=== PATIENT | male | born 1955 | race Caucasian/White ===

== ENCOUNTER → 2021-09-22 10:54 | Outpatient (BNVA) | payer MEDICARE, OTHER, SELFPAY | PROVIDERS: Visit Provider Internal Medicine Rheumatology | DX: R20.0 Anesthesia of skin (principal); M35.3 Polymyalgia rheumatica; M19.049 Primary osteoarthritis, unspecified hand | CPT/HCPCS: 99212 ==

== ENCOUNTER 2021-09-29 08:06 | Outpatient (REF) | payer MEDICARE, OTHER, SELFPAY ==
--- NOTE | 2021-09-29 08:12 | EMG_ITS ---
Bilateral median and ulnar motor and sensory studies were performed, bilateral radial sensory studies were performed, bilateral median and lateral antecubital sensory studies were performed. Paraspinal muscles were tested with a needle. IMPRESSION: 1. 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 2. 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 3. Bilateral medial plexus injury, which might be due to his history of shoulder surgeries. Clinical correlation is recommended. 4. Because of the extent and the type of median and ulnar neuropathies and to differentiate it from non entrapment type of neuropathy, testing on legs is recommended. If similar signs of neuropathy are found in the lower extremities, non entrapment etiologies should be looked at too. MD LARA Tavarez/MAMADOU / [phone]
== END 2021-09-29 08:07 | disposition home or self-care (01) ==
LOC: HO.NEURO 08:06
PROVIDERS: PCP Internal Medicine; Visit Provider Internal Medicine Rheumatology
DX: R20.0 Anesthesia of skin (principal)
CPT/HCPCS: 95886; 95913

== ENCOUNTER 2021-12-01 09:42 | Outpatient (REF) | payer MEDICARE, OTHER, SELFPAY ==
[2021-12-01 11:25] LABS: C Reactive Protein 0.06 mg/dL (< or = 0.50)
[2021-12-01 16:01] LABS: Erythrocyte Sedimentation Rate 13 MM/HR (0-15)
[2021-12-06 12:32] LABS: Anti DNA DS Antibody 1 IU/mL; SM/Ribonucleoprotein Ab <1.0 NEG AI (<1.0 NEG); Smith Protein <1.0 NEG AI (<1.0 NEG)
== END 2021-12-01 09:43 | disposition home or self-care (01) ==
LOC: HO.10HDL 09:42
PROVIDERS: Visit Provider Internal Medicine Rheumatology
DX: M19.049 Primary osteoarthritis, unspecified hand (principal); R20.0 Anesthesia of skin; M65.9 Synovitis and tenosynovitis, unspecified; R76.8 Other specified abnormal immunological findings in serum; M35.3 Polymyalgia rheumatica
CPT/HCPCS: 36415; 85652; 86140; 86225; 86235; 99212

== ENCOUNTER → 2022-03-02 08:28 | Outpatient (BNVA) | payer OTHER, MEDICARE, SELFPAY | PROVIDERS: PCP Internal Medicine; Visit Provider Internal Medicine Rheumatology | DX: M35.3 Polymyalgia rheumatica (principal); M19.049 Primary osteoarthritis, unspecified hand; M47.816 Spondylosis without myelopathy or radiculopathy, lumbar region; R35.0 Frequency of micturition; R20.0 Anesthesia of skin | CPT/HCPCS: 81001; 87086; 99212 ==

== ENCOUNTER 2022-03-02 09:27 | Outpatient (REF) | payer MEDICARE, OTHER, SELFPAY ==
[2022-03-02 10:53] LABS: Appearance Urine Clear; Color Urine Yellow; Glucose Urine UA Negative (Negative); Leukocyte Esterase Urine Negative (Negative); Nitrite Urine Negative (Negative); PH 5.5 (5.0-9.0); Specific Gravity - Urine 1.015 (1.005-1.025); Urine Blood Negative (Negative); Urine Ketones Negative (Negative); Urine Protein Negative (Neg-Trace)
[2022-03-02 10:55] LABS: Bacteria Urine None Seen (None Seen); Hyaline Casts Urine 0-2 /LPF (0-2); Squamous Epithelial Cell Urine 0-2 /HPF (0-2); WBC Urine 0-5 /HPF (0-5)
== END 2022-03-02 09:28 | disposition home or self-care (01) ==
LOC: HO.10HDL 09:27
PROVIDERS: Visit Provider Internal Medicine Rheumatology
DX: Z13.89 Encounter for screening for other disorder (principal)
CPT/HCPCS: 81001; 87086

== ENCOUNTER → 2022-06-12 07:54 | Outpatient (BNVA) | payer MEDICARE, OTHER, SELFPAY | PROVIDERS: PCP Internal Medicine; Visit Provider Internal Medicine Rheumatology | DX: M35.3 Polymyalgia rheumatica (principal); M19.049 Primary osteoarthritis, unspecified hand; M47.816 Spondylosis without myelopathy or radiculopathy, lumbar region; R97.20 Elevated prostate specific antigen [PSA] | CPT/HCPCS: 36415; 85652; 86140; 99212 ==

== ENCOUNTER 2022-06-12 08:42 | Outpatient (REF) | payer MEDICARE, OTHER, SELFPAY ==
[2022-06-12 11:02] LABS: C Reactive Protein 0.11 mg/dL (< or = 0.50)
[2022-06-12 11:14] LABS: Erythrocyte Sedimentation Rate 13 MM/HR (0-15)
== END 2022-06-12 08:43 | disposition home or self-care (01) ==
LOC: HO.10HDL 08:42
PROVIDERS: Visit Provider Internal Medicine Rheumatology
DX: M35.3 Polymyalgia rheumatica (principal); M47.816 Spondylosis without myelopathy or radiculopathy, lumbar region; R97.20 Elevated prostate specific antigen [PSA]
CPT/HCPCS: 36415; 85652; 86140

== ENCOUNTER 2023-08-24 09:34 | Outpatient (AMB) | payer MEDICARE, OTHER, SELFPAY ==
--- NOTE | 2023-08-24 09:38 | A.OFFVIS_ITS ---
Vital Signs 08/24/23 09:39 Height 5 ft 11 in Weight 247 lb 12.793 oz BMI 34.6 BP 98/78 Blood Pressure Location Rt brachial Position Sitting Pulse 86 Pulse Source Pulse Oximeter Pulse Oximetry (%) 95 Oxygen Delivery Method Room Air Intake Visit Reasons: PMR/CM Intake Note: Patient last seen on 06/12/[address] 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 Accompanied by: Self / Same As Patient Allergies Penicillins Adverse Reaction (Intermediate, Verified 08/24/23 09:44) Rash Medication List - Last Reconciled 08/24/23 by Douglas Mock MD amlodipine 2.5 mg PO DAILY ascorbic acid (vitamin C) 1 g PO DAILY aspirin (Adult Low Dose Aspirin) 81 mg PO DAILY atorvastatin 80 mg PO DAILY furosemide (Lasix) 20 mg PO DAILY lisinopril 20 mg PO DAILY metoprolol tartrate 25 mg PO BID prednisone 2.5 mg PO BID tamsulosin 0.4 mg PO BEDTIME tramadol 100 mg PO BID HPI Comments Details: This is a 68-year-old male with PMR and osteoarthritis who presents for follow- up. And states that he was tapered off the prednisone sometime in the last year however he restarted it about 4 months ago at 2.5 mg daily. Started it due to neck stiffness and cracking, left knee stiffness cracking and swelling as well as just generalized achiness, states that prednisone does provide some relief. Denies any headaches or blurred vision Most recent history by Dr. Faust 06/2022: The patient returns for evaluation of his PMR and osteoarthritis. He reports some lower back pain and wrist pain when he is more active. He is walking a couple miles a day as well as occasional mountain biking and does a lot a yard work. With the yard work he does get some wrist pain. This seems to be mostly at the base of the thumbs. He has some lower back, and that pain radiates to the buttocks and the groin region with prolonged walking. He does not have any headache, jaw claudication or visual disturbances. The shoulders have limited motion but are not painful. He remains on prednisone at 2.5 mg in the morning and 1.25 mg in the evening. His hand paresthesias continue although they are seemingly less bothersome to him. He had nerve conduction studies in the past showing evidence for carpal tunnel syndrome, ulnar neuropathy, and perhaps even brachial plexus injury from previous shoulder surgeries. He had a CT scan of the abdomen that showed a nonobstructive stone. Apparently he has somewhat elevated PSA and MRI of the pelvis has been ordered by his urologist. [facility], [facility] Surgical History History of EMG H/O shoulder replacement Family History Family/Other Autoimmune disease Father Heart disease Pancreatic cancer Mother No problems noted. 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[employer] Review of Systems ENT Reports neck pain Musc Reports back pain, Reports arthralgias, Reports joint swelling, Reports neck pain and Reports stiffness Physical Exam Vital Signs: Last Vital Signs Pulse 86 08/24/23 09:39 BP 98/78 08/24/23 09:39 Pulse Ox 95 08/24/23 09:39 Oxygen Delivery Method Room Air 08/24/23 09:39 BMI result Body Mass Index 34.6 Const General: cooperative, healthy appearing and comfortable Nutritional Appearance: obese morbidly obese Orientation/consciousness: patient oriented x3 Limitations: no limitations HEENT Head: Yes normocephalic and Yes atraumatic Mouth: oropharynx normal Resp Effort & Inspection: normal respiratory effort and able to speak in complete sentences Auscultation: clear to auscultation bilaterally Cardio Rate: regular rate Skin General skin exam: no rashes or lesions noted Neuro General: patient oriented x3 Extrem Other: Limited range of motion of neck but no acute pain No radiculopathy symptoms Significant osteoarthritic changes of both hands with no active synovitis . 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 Restarted 2019, tapered off around 06/2022 -ve -ve CCP +DELMIS 1:80 self restarted 04/2023 Code(s): M35.3 - Polymyalgia rheumatica Category: Medical Plan: This is a 68-year-old male with history of polymyalgia rheumatica who presents for follow-up this is his 1st visit with me. He used to follow-up with Dr. Faust. Last year prednisone was tapered off by Dr. Faust. Over the last 4-5 months patient started having symptoms of stiffness of his neck, shoulders, knees, intermittent swelling of his left knee. He started taking prednisone 2.5 mg daily with some improvement. I think at this time patient's PMR is likely in remission and his main symptoms are related to degenerative arthritis affecting multiple joints including his neck, his knees, his back, prednisone can provide some relief for osteoarthritis as well. I will recheck his inflammatory markers. Continue with prednisone 2.5 mg daily for now, if inflammatory markers are normal, we will plan to slowly taper off prednisone I will order PT for his neck and knees Labs before next visit in 3 months (2) Osteoarthritis of lumbar spine: Code(s): M47.816 - Spondylosis without myelopathy or radiculopathy, lumbar region Category: Medical Qualifiers: Spinal osteoarthritis complication: without myelopathy or radiculopathy Qualified Code(s): M47.816 - Spondylosis without myelopathy or radiculopathy, lumbar region (3) Cervical disc disease: Code(s): M50.90 - Cervical disc disorder, unspecified, unspecified cervical region Category: Medical (4) Bilateral primary osteoarthritis of knee: Code(s): M17.0 - Bilateral primary osteoarthritis of knee Category: Medical Plan I spent 46 minutes reviewing patient's chart, reviewing chart from [place], evaluating patient, ordering diagnostic workup, counseling patient and documenting in the chart Orders: Orders Complete Blood Count Auto Diff Today M35.3 - Polymyalgia rheumatica Erythrocyte Sedimentation Rate Today M35.3 - Polymyalgia rheumatica XR knee LT 3V Today M15.9 - Polyosteoarthritis, unspecified XR knee RT 3V Today M15.9 - Polyosteoarthritis, unspecified XR cervical spine 4V Today M15.9 - Polyosteoarthritis, unspecified PT Evaluation and Treatment Today M17.0 - Bilateral primary osteoarthritis of knee, M50.30 - Other cervical disc degeneration, unspecified cervical region Erythrocyte Sedimentation Rate 3 Months M35.3 - Polymyalgia rheumatica Comprehensive Met. Panel Today M35.3 - Polymyalgia rheumatica C Reactive Protein Today M35.3 - Polymyalgia rheumatica Hepatitis A,B,C Profile Today Z11.59 - Encounter for screening for other viral diseases T Spot TB Today Z11.7 - Encounter for testing for latent tuberculosis infection XR knee standing BI Today M15.9 - Polyosteoarthritis, unspecified Complete Blood Count Auto Diff 3 Months M35.3 - Polymyalgia rheumatica Comprehensive Met. Panel 3 Months M35.3 - Polymyalgia rheumatica C Reactive Protein 3 Months M35.3 - Polymyalgia rheumatica Coding Level of Care Code Est Pt Level 5 (03662) Diagnoses Polymyalgia rheumatica M35.3 Spondylosis of lumbar region without myelopathy or radiculopathy M47.816 Spinal osteoarthritis complication: without myelopathy or radiculopathy Cervical disc disease M50.90 Bilateral primary osteoarthritis of knee M17.0
[2023-08-24 09:39] VITALS: BP 98/78; PULSE 86; O2SAT 95; BMI 34.6
== END 2023-08-24 10:20 | disposition home or self-care (01) ==
LOC: HO.RHE 09:34
PROVIDERS: PCP Internal Medicine; Visit Provider Student in an Organized Health Care Education/Training Program
DX: M35.3 Polymyalgia rheumatica (principal); M47.816 Spondylosis without myelopathy or radiculopathy, lumbar region; M50.90 Cervical disc disorder, unspecified, unspecified cervical region; M17.0 Bilateral primary osteoarthritis of knee
CPT/HCPCS: 99215

== ENCOUNTER → 2023-08-24 09:34 | Outpatient (BNVA) | payer MEDICARE, OTHER, SELFPAY | PROVIDERS: PCP Internal Medicine; Visit Provider Student in an Organized Health Care Education/Training Program | DX: M35.3 Polymyalgia rheumatica (principal); M47.816 Spondylosis without myelopathy or radiculopathy, lumbar region; M50.90 Cervical disc disorder, unspecified, unspecified cervical region; M17.0 Bilateral primary osteoarthritis of knee; M50.30 Other cervical disc degeneration, unspecified cervical region; Z79.52 Long term (current) use of systemic steroids | CPT/HCPCS: 99212 ==

== ENCOUNTER 2023-09-03 13:18 | Outpatient (REF) | payer MEDICARE, OTHER, SELFPAY ==
--- NOTE | ~2023-09-03 | XR_ITS ---
EXAMINATION: Bilateral knee series CLINICAL INFORMATION: Mild osteoarthritis COMPARISON: None. TECHNIQUE: 4 views of each knee including AP upright FINDINGS: Right knee: Tiny marginal osteophytes about the lateral compartment and patellofemoral compartment without joint space narrowing indicative of minimal osteoarthritis. Medial compartment normal. No effusion. Surrounding bone and soft tissues unremarkable. Left knee: Tiny marginal osteophytes but patellofemoral compartment and lateral compartment without joint space narrowing indicative of minimal arthrosis. Medial compartment normal. No effusion. Surrounding bone and soft tissues unremarkable. XR/XR knee standing BI IMPRESSION: RIGHT KNEE: Minimal osteoarthritis. LEFT KNEE: Minimal osteoarthritis.
--- NOTE | ~2023-09-03 | XR_ITS ---
EXAMINATION: XR CERVICAL SPINE CLINICAL INFORMATION: Polyarticular osteoarthritis. COMPARISON: None. TECHNIQUE: Frontal, odontoid, bilateral oblique and lateral views of the cervical spine were obtained. FINDINGS: There is bony demineralization. Vertebral body heights are normal. At C5-C6 and C6-C7, there is moderately severe disc space narrowing, with endplate arthropathy. At C7-T1, there is a 4 mm anterolisthesis. There is moderate disc space narrowing at C2-C3 and C3-C4. No acute fracture or spondylolisthesis is seen. The posterior elements are intact. There is multi-level cervical endplate and facet arthropathy. The dens is intact. No prevertebral soft tissue swelling is seen. XR/XR cervical spine 4V IMPRESSION: There is multi-level cervical degenerative disc disease and endplate and facet arthropathy. Degenerative disc disease is most pronounced at C5-C6 and C6-C7, where it is moderately severe.
--- NOTE | ~2023-09-03 | XR_ITS ---
EXAMINATION: Bilateral knee series CLINICAL INFORMATION: Mild osteoarthritis COMPARISON: None. TECHNIQUE: 4 views of each knee including AP upright FINDINGS: Right knee: Tiny marginal osteophytes about the lateral compartment and patellofemoral compartment without joint space narrowing indicative of minimal osteoarthritis. Medial compartment normal. No effusion. Surrounding bone and soft tissues unremarkable. Left knee: Tiny marginal osteophytes but patellofemoral compartment and lateral compartment without joint space narrowing indicative of minimal arthrosis. Medial compartment normal. No effusion. Surrounding bone and soft tissues unremarkable. XR/XR knee RT 3V IMPRESSION: RIGHT KNEE: Minimal osteoarthritis. LEFT KNEE: Minimal osteoarthritis.
--- NOTE | ~2023-09-03 | XR_ITS ---
EXAMINATION: Bilateral knee series CLINICAL INFORMATION: Mild osteoarthritis COMPARISON: None. TECHNIQUE: 4 views of each knee including AP upright FINDINGS: Right knee: Tiny marginal osteophytes about the lateral compartment and patellofemoral compartment without joint space narrowing indicative of minimal osteoarthritis. Medial compartment normal. No effusion. Surrounding bone and soft tissues unremarkable. Left knee: Tiny marginal osteophytes but patellofemoral compartment and lateral compartment without joint space narrowing indicative of minimal arthrosis. Medial compartment normal. No effusion. Surrounding bone and soft tissues unremarkable. XR/XR knee LT 3V IMPRESSION: RIGHT KNEE: Minimal osteoarthritis. LEFT KNEE: Minimal osteoarthritis.
== END 2023-09-03 13:19 | disposition home or self-care (01) ==
LOC: HO.HMGCX 13:18
PROVIDERS: PCP Internal Medicine; Visit Provider Student in an Organized Health Care Education/Training Program
DX: M15.9 Polyosteoarthritis, unspecified (principal)
CPT/HCPCS: 72050; 73562; 73565

== ENCOUNTER 2023-10-09 09:56 | Outpatient (REF) | payer MEDICARE, OTHER, SELFPAY ==
[2023-10-09 13:15] LABS: MANUAL DIFF FLAG NO
[2023-10-09 13:36] LABS: Basophils Absolute Auto 0.1 X10*3/uL (0.0-0.2); Basophils Percent Auto 1.1 % (0-2); Eosinophils Absolute Auto 0.1 X10*3/uL (0.0-0.4); Eosinophils Percent Auto 1.9 % (0-4); Hematocrit 41.5 % (42.0-52.0); Hemoglobin 13.5 g/dl (14.0-18.0); Imm Gran Abs Auto 0.03 X10*3/uL (0.00-0.03); Imm Gran Pct Auto 0.5 % (0.0-0.4); Lymphocytes Absolute Auto 1.5 X10*3/uL (1.2-4.9); Lymphocytes Percent Auto 23.7 % (20-40); Mean Corpuscular HGB Conc 32.5 g/dl (31.0-36.0); Mean Corpuscular Hemoglobin 30.4 pg (27.0-33.0); Mean Corpuscular Volume 93.5 fL (80.0-98.0); Mean Platelet Volume 10.2 fL (9.4-12.4); Monocytes Absolute Auto 0.8 X10*3/uL (0.1-1.2); Monocytes Percent Auto 12.9 % (2-11); Neutrophils Absolute Auto 3.8 x10*3/uL (2.0-8.3); Neutrophils Percent Auto 59.9 % (45-73); Platelet Count 288 X10*3/uL (160-400); Red Blood Count 4.44 X10*6/uL (4.60-5.80); Red Cell Distribution Width 12.9 % (11.0-16.0); White Blood Count 6.3 X10*3/uL (4.8-10.8)
[2023-10-09 13:47] LABS: Alanine Aminotransferase 135 U/L (0-40); Albumin Level 4.1 g/dL (3.5-5.0); Alkaline Phosphatase 89 U/L (39-117); Anion Gap 12 (12-20); Aspartate Amino Transferase 111 U/L (5-37); Bilirubin Total 0.7 mg/dL (0.0-1.0); Blood Urea Nitrogen 20 mg/dL (9-16); C Reactive Protein 0.16 mg/dL (< or = 0.50); Calcium 9.5 mg/dL (8.4-10.2); Carbon Dioxide 23 mmol/L (22-29); Chloride 106 mmol/L (96-108); Estimated Glomerular Filt Rate > 60; Glucose Random 97 mg/dL (60-115); Potassium 4.3 mmol/L (3.3-5.1); Sodium 137 mmol/L (135-145)
[2023-10-09 14:20] LABS: Erythrocyte Sedimentation Rate 20 MM/HR (0-15)
[2023-10-10 04:58] LABS: HBS Num1 > 1000.00 mIU/mL (0-7.99); HBc Num1 0.08 S/CO (0.00-0.79); HBsAGNum1 0.24 S/CO (0.00-0.99); Hepatitis A Antibody IgM 0.27 Index (0-0.79); Hepatitis B Core Antibody Nonreactive (Nonreactive); Hepatitis B Surface Antigen Negative (Negative); ~HepC Num1 0.19 S/CO (0.00-0.79); ~Hepatitis A Antibody IgM Nonreactive (Nonreactive); ~Hepatitis B Surface Antibody REACTIVE (Nonreactive); ~Hepatitis C Antibody Nonreactive (Nonreactive)
[2023-10-12 13:23] LABS: TS Negative Control Passed; TS Panel A 3; TS Panel B 0; TS Positive Control Passed; TSpotTB Negative (Negative)
== END 2023-10-09 09:57 | disposition home or self-care (01) ==
LOC: HO.HMGCLDS 09:56
PROVIDERS: PCP Internal Medicine; Visit Provider Student in an Organized Health Care Education/Training Program
DX: M35.3 Polymyalgia rheumatica (principal); Z11.59 Encounter for screening for other viral diseases; Z11.7 Encounter for testing for latent tuberculosis infection; Z72.89 Other problems related to lifestyle
CPT/HCPCS: 36415; 80053; 85025; 85652; 86140; 86481; 86704; 86706; 86709; 86803; 87340

== ENCOUNTER 2023-10-25 11:33 | Outpatient (AMB) | payer MEDICARE, OTHER, SELFPAY ==
[2023-10-25 11:35] VITALS: BP 118/64; PULSE 64; O2SAT 96; BMI 33.7
--- NOTE | 2023-10-25 11:35 | A.OFFVIS_ITS ---
Vital Signs 10/25/23 11:35 Height 5 ft 11 in Weight 241 lb 13.553 oz BMI 33.7 BP 118/64 Blood Pressure Location Rt brachial Position Sitting Pulse 64 Pulse Source Pulse Oximeter Pulse Oximetry (%) 96 Oxygen Delivery Method Room Air Intake Visit Reasons: PMR Intake Note: Patient last seen by Doctor Douglas Mock on 08/24/23. Presents today for PMR follow up and labs/XR's results. Allergies Penicillins Adverse Reaction (Intermediate, Verified 08/24/23 09:44) Rash Medication List - Last Reconciled 10/25/23 by Douglas Mock MD amlodipine 2.5 mg PO DAILY ascorbic acid (vitamin C) 1 g PO DAILY aspirin (Adult Low Dose Aspirin) 81 mg PO DAILY atorvastatin 80 mg PO DAILY furosemide (Lasix) 20 mg PO DAILY lisinopril 20 mg PO DAILY metoprolol tartrate 25 mg PO BID prednisone 2.5 mg PO BID tamsulosin 0.4 mg PO BEDTIME tramadol 100 mg PO BID HPI Comments Details: This is a 68-year-old male with PMR and osteoarthritis who presents for follow- up. He discontinued prednisone after his last visit with me. He states that he has not been doing well. States that prednisone did not make much of a difference. He continues to have neck pain, significant limitation in range of motion of his neck, he gets shooting pain when he turns his neck to the sides, he has tingling and numbness of his hands in the middle of the night. Takes tramadol sometimes which provides some relief, he has few tablets of Dilaudid that he uses only as needed and they provide some relief. He did not go to physical therapy as instructed as he did not feel it will be helpful. He has been drinking more recently Most recent history by Dr. Faust 06/2022: The patient returns for evaluation of his PMR and osteoarthritis. He reports some lower back pain and wrist pain when he is more active. He is walking a couple miles a day as well as occasional mountain biking and does a lot a yard work. With the yard work he does get some wrist pain. This seems to be mostly at the base of the thumbs. He has some lower back, and that pain radiates to the buttocks and the groin region with prolonged walking. He does not have any headache, jaw claudication or visual disturbances. The shoulders have limited motion but are not painful. He remains on prednisone at 2.5 mg in the morning and 1.25 mg in the evening. His hand paresthesias continue although they are seemingly less bothersome to him. He had nerve conduction studies in the past showing evidence for carpal tunnel syndrome, ulnar neuropathy, and perhaps even brachial plexus injury from previous shoulder surgeries. He had a CT scan of the abdomen that showed a nonobstructive stone. Apparently he has somewhat elevated PSA and MRI of the pelvis has been ordered by his urologist. [facility] Surgical History History of EMG H/O shoulder replacement Family History Family/Other Autoimmune disease Father Heart disease Pancreatic cancer Mother No problems noted. 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[employer] Review of Systems ENT Reports neck pain Musc Reports back pain, Reports arthralgias, Reports neck pain, Reports radiating pain into limb and Reports stiffness Physical Exam Vital Signs: Last Vital Signs Pulse 64 10/25/23 11:35 BP 118/64 10/25/23 11:35 Pulse Ox 96 10/25/23 11:35 Oxygen Delivery Method Room Air 10/25/23 11:35 BMI result Body Mass Index 33.7 Const General: cooperative, healthy appearing and comfortable Nutritional Appearance: obese morbidly obese Orientation/consciousness: patient oriented x3 Limitations: no limitations HEENT Head: Yes normocephalic and Yes atraumatic Resp Effort & Inspection: normal respiratory effort and able to speak in complete sentences Skin General skin exam: no rashes or lesions noted Neuro General: patient oriented x3 Extrem Other: Limited range of motion of neck but no acute pain Significant osteoarthritic changes of both hands with no active synovitis . 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 Restarted 2019, tapered off around 06/2022 -ve -ve CCP +DELMIS 1:80 self restarted 04/2023-DC 08/2023 not helpful Code(s): M35.3 - Polymyalgia rheumatica Category: Medical Plan: This is a 68-year-old male with history of polymyalgia rheumatica who presents for follow-up. He is no longer on prednisone. Discontinuing prednisone did not make his symptoms worse. I do not think his PMR is active. His symptoms are rather related to degenerative arthritis of his neck. I will refer patient to pain management Follow-up in 4 months (2) Osteoarthritis of lumbar spine: Code(s): M47.816 - Spondylosis without myelopathy or radiculopathy, lumbar region Category: Medical Qualifiers: Spinal osteoarthritis complication: without myelopathy or radiculopathy Qualified Code(s): M47.816 - Spondylosis without myelopathy or radiculopathy, arik mbar region (3) Cervical disc disease: Code(s): M50.90 - Cervical disc disorder, unspecified, unspecified cervical region Category: Medical Plan: Patient not interested in PT. he feels that it will make things worse. Referred to pain management (4) Bilateral primary osteoarthritis of knee: Code(s): M17.0 - Bilateral primary osteoarthritis of knee Category: Medical Plan: Mild on x-rays. Not particularly symptomatic at this time (5) Transaminitis: Code(s): R74.01 - Elevation of levels of liver transaminase levels Category: Medical Plan: Related to excessive alcohol consumption. Advised patient to cut down Plan I spent 36 minutes reviewing patient's chart, reviewing chart from [place], evaluating patient, ordering diagnostic workup, counseling patient and documenting in the chart Orders: Referrals Pain Management Referral M50.90 - Cervical disc disorder, unspecified, unspecified cervical region Hand Surgery Referral G56.03 - Carpal tunnel syndrome, bilateral upper limbs Coding Level of Care Code Est Pt Level 4 (20373) Diagnoses Polymyalgia rheumatica M35.3 Spondylosis of lumbar region without myelopathy or radiculopathy M47.816 Spinal osteoarthritis complication: without myelopathy or radiculopathy Cervical disc disease M50.90 Bilateral primary osteoarthritis of knee M17.0 Transaminitis R74.01
== END 2023-10-25 12:30 | disposition home or self-care (01) ==
PROVIDERS: PCP Internal Medicine; Visit Provider Student in an Organized Health Care Education/Training Program
DX: M35.3 Polymyalgia rheumatica (principal); M47.816 Spondylosis without myelopathy or radiculopathy, lumbar region; M50.90 Cervical disc disorder, unspecified, unspecified cervical region; M17.0 Bilateral primary osteoarthritis of knee; R74.01 Elevation of levels of liver transaminase levels
CPT/HCPCS: 99214

== ENCOUNTER → 2023-10-25 11:33 | Outpatient (BNVA) | payer MEDICARE, OTHER, SELFPAY | PROVIDERS: PCP Internal Medicine; Visit Provider Student in an Organized Health Care Education/Training Program | DX: M17.0 Bilateral primary osteoarthritis of knee (principal); M35.3 Polymyalgia rheumatica; M47.816 Spondylosis without myelopathy or radiculopathy, lumbar region; M50.90 Cervical disc disorder, unspecified, unspecified cervical region; R74.01 Elevation of levels of liver transaminase levels | CPT/HCPCS: 99212 ==

== ENCOUNTER 2023-11-05 09:03 | Outpatient (AMB) | payer MEDICARE, OTHER, SELFPAY ==
--- NOTE | 2023-11-05 09:04 | A.OFFVIS_ITS ---
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 Denies any recent injury, trauma, or falls. 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 At age 16, he had left arm injury when he was running down the hill and landed on broken glass with his left hand. Patient reports chronic bilateral arm and hand weakness and numbness, worse on the left since injury and bilateral shoulder surgeries as well as generative arthritis in his hands and neck. Neck pain is axial and also reports shooting neck pain into his shoulder and upper extremities with associated numbness and tingling which is worst at night. Patient reports previously was evaluated by Hand Surgeon in the recent past and was deemed non-surgical. Patient also has significant osteoarthritic changes of both hands. He recently was tapered off prednisone due to minimal benefit. Pain affects his daily activities and functioning, ROM, sleep, social interactions and quality of life. Neck pain is constant and is rated 6-7/10. Patient denies previous PT or chiropractic therapy. Denies previous spine surgery but has undergone 39 back injections and RFA with partial relief. He reports due to his severely ruptured disc in his lower back, he was considered high risk for back surgery in the past. Cervical spine xray and EMG reports are noted below. Denies any fever or chills, chest pain, dizziness, dyspnea, bladder or bowel dysfunction or saddle anesthesia. Oswestry Neck Disability Score=23 (moderate disability) Location: Neck pain, bilateral hand numbness and tingling with mild weakness, L>R Duration: Chronic pain due to degenerative arthritis, worsening for past >6 months Characteristics of symptom or complaint: Stabbing, aching, shooting, tiring, exhausting , numbness, tingling, sore Aggravating or associated factors: Movements, extension and flexion, stress, cold weather Relieving factors: Tramadol, prednisone (tapered off), heat, topical applicatio ns Treatment: Stretching exercises [facility] Medical History (Updated 11/05/23 @ 10:29 by FATOU Easton) DELMIS positive Transaminitis Prostate cancer CHF (congestive heart failure) Bilateral hand numbness Polymyalgia rheumatica Osteoarthritis of lumbar spine Cervical disc disease Bilateral primary osteoarthritis of knee Bilateral carpal tunnel syndrome Cervical spondylosis Surgical History (Updated 11/05/23 @ 10:27 by FATOU Easton) H/O heart artery stent History of EMG H/O shoulder replacement Family History Family/Other Autoimmune disease Father Heart disease Pancreatic cancer Mother No problems noted. 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 Alert and oriented. Mood and affect appropriate. Follows and participates in conversation appropriately. Respiratory effort is unlabored. No cough. Able to transition from sit to stand unassisted. Ambulates with bilaterally normal heel strike and toe off. Neck Other: Patient with decreased cervical ROM in all planes/especially with lateral rotation bilaterally. Reports increased pain with cervical extension and flexion. Spurling compression test equivocal. Pain is unchanged by Spurling maneuver with retraction. Elvey's tension test positive bilaterally, with radiation of pain from neck to wrist and hands. Lhermitte's test was negative. DTR diminished bilaterally. Patient demonstrated 5/5 right and 4/5 left motor strength of bilateral upper extremities. 2 + radial pulses. Significant tightness throughout upper and lower trapezius and rhomboid muscles. Mild paravertebral tenderness over lower cervical facet joints bilaterally. +Phalen and Tinel tests bilaterally. Neck: Yes no lymphadenopathy, Yes supple, Yes anterior neck swelling, Yes no JVD, No prominent supraclavicular fat pad and Yes prominent dorsocervical fat pad Back/Spine/Pelvis Cervical Spine: loss of normal cervical lordosis, cervical muscular tenderness, pain with cervical ROM, No Cervical spine scars present, No cervical spasm, Cervical spine tenderness and No step off deformity Thoracic/Lumbar Spine: thoracic and lumbar spine normal to inspection, No Thoracic/lumbar spine scar(s), pain with thoraco-lumbar ROM, No thoracic spinal tenderness and No lumbar spinal tenderness Results Reviewed Results Reviewed: XR CERVICAL SPINE 09/03/23 CLINICAL INFORMATION: Polyarticular osteoarthritis. FINDINGS: There is bony demineralization. Vertebral body heights are normal. At C5-C6 and C6-C7, there is moderately severe disc space narrowing, with endplate arthropathy. At C7-T1, there is a 4 mm anterolisthesis. There is moderate disc space narrowing at C2-C3 and C3-C4. No acute fracture or spondylolisthesis is seen. The posterior elements are intact. There is multi-level cervical endplate and facet arthropathy. The dens is intact. No prevertebral soft tissue swelling is seen. IMPRESSION: There is multi-level cervical degenerative disc disease and endplate and facet arthropathy. Degenerative disc disease is most pronounced at C5-C6 and C6-C7, where it is moderately severe. NE electromyogram (EMG); NE nerve conduction velocity 09/29/21 Bilateral median and ulnar motor and sensory studies were performed, bilateral radial sensory studies were performed, bilateral median and lateral antecubital sensory studies were performed. Paraspinal muscles were tested with a needle. IMPRESSION: 1. 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 2. 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 3. Bilateral medial plexus injury, which might be due to his history of shoulder surgeries. Clinical correlation is recommended. 4. Because of the extent and the type of median and ulnar neuropathies and to differentiate it from non entrapment type of neuropathy, testing on legs is recommended. If similar signs of neuropathy are found in the lower extremities, non entrapment etiologies should be looked at too. Assessment & Plan Assessment & Plan (1) Bilateral hand numbness: Comment: 1. 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 2. 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 3. Bilateral medial plexus injury, which might be due to his history of shoulder surgeries. Clinical correlation is recommended. Code(s): R20.0 - Anesthesia of skin Category: Medical (2) Cervical disc disease: Code(s): M50.90 - Cervical disc disorder, unspecified, unspecified cervical region Category: Medical (3) Cervical spondylosis: Code(s): M47.812 - Spondylosis without myelopathy or radiculopathy, cervical region Category: Medical (4) Bilateral carpal tunnel syndrome: Code(s): G56.03 - Carpal tunnel syndrome, bilateral upper limbs Category: Medical (5) Cervical radiculopathy: Code(s): M54.12 - Radiculopathy, cervical region Category: Medical (6) Bilateral hand numbness: Comment: 1. 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 2. 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 3. Bilateral medial plexus injury, which might be due to his history of shoulder surgeries. Clinical correlation is recommended. Code(s): R20.0 - Anesthesia of skin Category: Medical (7) Cervical spondylosis: Code(s): M47.812 - Spondylosis without myelopathy or radiculopathy, cervical region Category: Medical Plan MRI of the cervical spine to assess for neural integrity and compression and follow up on recent xray findings. Discussed interventional treatments for axial cervical spine, discogenic and radicular neck pain. His symptoms are also overlap with carpal and cubital tunnel syndromes. Informational pamphlet provided to patient today. Recommend formal physical therapy for chronic neck pain. Script provided today for [facility] in [place] per patient's request as this is closer to his home. Script provided for magnesium glycinate. Discussed side effects and precautions with patient. Will consider muscle relaxant in the near future if no relief with magnesium glycinate. Encouraged daily physical activity as tolerated, good posture, well balanced diet, adequate hydration and weight optimization. All questions and concerns have been answered and patient agreed with the treatment plan. Follow up for MRI results and sooner as needed. Orders: Orders PT Evaluation and Treatment Today G56.03 - Carpal tunnel syndrome, bilateral upper limbs, M47.812 - Spondylosis without myelopathy or radiculopathy, cervical region, M50.90 - Cervical disc disorder, unspecified, unspecified cervical region, M54.12 - Radiculopathy, cervical region, R20.0 - Anesthesia of skin MR cervical spine wo con Today G56.03 - Carpal tunnel syndrome, bilateral upper limbs, M47.22 - Other spondylosis with radiculopathy, cervical region, M47.812 - Spondylosis without myelopathy or radiculopathy, cervical region, M54.12 - Radiculopathy, cervical region, R20.0 - Anesthesia of skin Medications: New magnesium glycinate 200 mg (2 x 100 mg) PO DAILY 30 days 60 tabs 0RF pain G5 6.03 - Carpal tunnel syndrome, bilateral upper limbs, M47.812 - Spondylosis without myelopathy or radiculopathy, cervical region, M50.90 - Cervical disc disorder, unspecified, unspecified cervical region, M54.12 - Radiculopathy, cervical region Coding Level of Care Code New Pt Level 4 (03810) Complex EM visit Add On G2211 Diagnoses Bilateral hand numbness R20.0 Cervical disc disease M50.90 Cervical spondylosis M47.812 Bilateral carpal tunnel syndrome G56.03 Cervical radiculopathy M54.12
[2023-11-05 09:07] VITALS: BP 147/93; PULSE 58; O2SAT 99; BMI 34.0
== END 2023-11-05 10:02 | disposition home or self-care (01) ==
PROVIDERS: PCP Internal Medicine; Referring Provider Student in an Organized Health Care Education/Training Program; Visit Provider Nurse Practitioner Family
DX: R20.0 Anesthesia of skin (principal); M50.90 Cervical disc disorder, unspecified, unspecified cervical region; M47.812 Spondylosis without myelopathy or radiculopathy, cervical region; G56.03 Carpal tunnel syndrome, bilateral upper limbs; M54.12 Radiculopathy, cervical region
CPT/HCPCS: 99204

== ENCOUNTER → 2023-11-05 09:03 | Outpatient (BNVA) | payer OTHER, MEDICARE, SELFPAY | PROVIDERS: PCP Internal Medicine; Referring Provider Student in an Organized Health Care Education/Training Program; Visit Provider Nurse Practitioner Family ==

== ENCOUNTER 2023-12-07 08:51 | Outpatient (AMB) | payer MEDICARE, OTHER, SELFPAY ==
[2023-12-07 09:00] VITALS: BP 144/86; PULSE 86; O2SAT 96; BMI 32.1
--- NOTE | 2023-12-07 09:00 | A.OFFVIS_ITS ---
Vital Signs 12/07/23 09:00 Height 5 ft 11 in Weight 230 lb BMI 32.1 BP 144/86 H Blood Pressure Location Rt brachial Position Sitting Pulse 86 Pulse Source Pulse Oximeter Pulse Oximetry (%) 96 Oxygen Delivery Method Room Air Intake Visit Reasons: follow up after PT Allergies Penicillins Adverse Reaction (Intermediate, Verified 12/07/23 09:01) Rash Medication List - Last Reconciled 12/07/23 by Ricarda Leblanc amlodipine 2.5 mg PO DAILY ascorbic acid (vitamin C) 1 g PO DAILY aspirin (Adult Low Dose Aspirin) 81 mg PO DAILY atorvastatin 80 mg PO DAILY duloxetine 60 mg PO DAILY fluticasone propionate 50 mcg/actuation sprays intranasal furosemide (Lasix) 20 mg PO DAILY lisinopril 20 mg PO DAILY magnesium glycinate 200 mg (2 x 100 mg) PO DAILY 30 days metoprolol tartrate 25 mg PO BID prednisone 2.5 mg PO BID tamsulosin 0.4 mg PO BEDTIME tramadol 100 mg PO BID HPI Comments Details: Patient presents today for follow-up to assess response to physical therapy and to review recent cervical spine MRI results. He continues to endorse significant neck pain with every movement and bilateral upper extremities numbness and tingling and pain in both of his hands, most severe in his right hand. Patient reports he can not get adequate sleep due to significant numbness, paresthesia, tingling and pain in his right hand and fingers. He constantly repositions himself at night and is a side sleeper. Patient reports he had canceled appointment with a Hand Specialist until we review his MRI results today. He completed 4 sessions of physical therapy at [facility] with minimal improvement in his pain, symptoms or functioning. He continues to take tramadol, heat, topical applications and tried magnesium glycinate with minimal pain relief. Patient has CHF and has been avoiding muscle relaxants. Denies any fever or chills, dizziness, shortness of breath, chest pain, imbalance issues, bladder or bowel dysfunction or saddle anesthesia. Reports bilateral hand stiffness, decreased range of motion, and weakness due to significant numbness and tingling in both hands that radiates up to his shoulders, worse on the right side as well as difficulty with pinching or grasping objects. PRIOR: Patient is a pleasant 68 years old male with prior history of polymyalgia rheumatica, osteoarthritis, polyarthralgia, CHF, prostate cancer (annual biopsies and PSA), back pain with h/o ruptured disc, bilateral carpal tunnel and cubital tunnel syndromes, h/o bilateral shoulder surgery (2020, [facility]) presents today for initial evaluation for chronic neck pain with radiculopathy. Denies any recent injury, trauma, or falls. 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 At age 16, he had left arm injury when he was running down the hill and landed on broken glass with his left hand. Patient reports chronic bilateral arm and hand weakness and numbness, worse on the left since injury and bilateral shoulder surgeries as well as generative arthritis in his hands and neck. Neck pain is axial and also reports shooting neck pain into his shoulder and upper extremities with associated numbness and tingling which is worst at night. Patient reports previously was evaluated by Hand Surgeon in the recent past and was deemed non-surgical. Patient also has significant osteoarthritic changes of both hands. He recently was tapered off prednisone due to minimal benefit. Pain affects his daily activities and functioning, ROM, sleep, social interactions and quality of life. Neck pain is constant and is rated 6-7/10. Patient denies previous PT or chiropractic therapy. Denies previous spine surgery but has undergone 39 back injections and RFA with partial relief. He reports due to his severely ruptured disc in his lower back, he was considered high risk for back surgery in the past. Cervical spine xray and EMG reports are noted below. Denies any fever or chills, chest pain, dizziness, dyspnea, bladder or bowel dysfunction or saddle anesthesia. Oswestry Neck Disability Score=23 (moderate disability) Location: Neck pain, bilateral hand numbness and tingling with mild weakness, L>R Duration: Chronic pain due to degenerative arthritis, worsening for past >6 months Characteristics of symptom or complaint: Stabbing, aching, shooting, tiring, exhausting , numbness, tingling, sore Aggravating or associated factors: Movements, extension and flexion, stress, cold weather Relieving factors: Tramadol, prednisone (tapered off), heat, topical applications Treatment: Stretching exercises [facility] Medical History DELMIS positive Transaminitis Prostate cancer CHF (congestive heart failure) Bilateral hand numbness Polymyalgia rheumatica Osteoarthritis of lumbar spine Cervical disc disease Bilateral primary osteoarthritis of knee Bilateral carpal tunnel syndrome Cervical spondylosis Surgical History H/O heart artery stent History of EMG H/O shoulder replacement Family History Family/Other Autoimmune disease Father Heart disease Pancreatic cancer Mother No problems noted. 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 Alert and oriented. Mood and affect appropriate. Follows and participates in conversation appropriately. Respiratory effort is unlabored. No cough. Able to transition from sit to stand unassisted. Ambulates with bilaterally normal heel strike and toe off. Neck Other: Patient with decreased cervical ROM in all planes/especially with lateral rotation bilaterally. Reports increased pain with cervical extension and flexion. Spurling compression test is negative. Pain is unchanged by Spurling maneuver with retraction. Elvey's tension test positive bilaterally, with radiation of pain from neck to wrist and hands. Lhermitte's test was negative. DTR diminished bilaterally. Patient demonstrated 5/5 right and 4/5 left motor strength of bilateral upper extremities. 2 + radial pulses. Significant tightness throughout upper and lower trapezius and rhomboid muscles. Mild paravertebral tenderness over lower cervical facet joints bilaterally. +Phalen and Tinel tests bilaterally, right>left. Decreased ROM of bilateral thumbs and 2-4th fingers, difficulty with pinching or grasping due to pain, tingling and numbness. Neck: Yes no lymphadenopathy, Yes supple, No anterior neck swelling, Yes no JVD, No prominent supraclavicular fat pad and Yes prominent dorsocervical fat pad Back/Spine/Pelvis Cervical Spine: loss of normal cervical lordosis, cervical muscular tenderness, pain with cervical ROM, No Cervical spine scars present, No cervical spasm, Cervical spine tenderness and No step off deformity Thoracic/Lumbar Spine: thoracic and lumbar spine normal to inspection, No Thoracic/lumbar spine scar(s), pain with thoraco-lumbar ROM, No thoracic spinal tenderness and No lumbar spinal tenderness Results Reviewed Results Reviewed: XR CERVICAL SPINE 09/03/23 CLINICAL INFORMATION: Polyarticular osteoarthritis. FINDINGS: There is bony demineralization. Vertebral body heights are normal. At C5-C6 and C6-C7, there is moderately severe disc space narrowing, with endplate arthropathy. At C7-T1, there is a 4 mm anterolisthesis. There is moderate disc space narrowing at C2-C3 and C3-C4. No acute fracture or spondylolisthesis is seen. The posterior elements are intact. There is multi-level cervical endplate and facet arthropathy. The dens is intact. No prevertebral soft tissue swelling is seen. IMPRESSION: There is multi-level cervical degenerative disc disease and endplate and facet arthropathy. Degenerative disc disease is most pronounced at C5-C6 and C6-C7, where it is moderately severe. NE electromyogram (EMG); NE nerve conduction velocity 09/29/21 Bilateral median and ulnar motor and sensory studies were performed, bilateral radial sensory studies were performed, bilateral median and lateral antecubital sensory studies were performed. Paraspinal muscles were tested with a needle. IMPRESSION: 1. 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 2. 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 3. Bilateral medial plexus injury, which might be due to his history of shoulder surgeries. Clinical correlation is recommended. 4. Because of the extent and the type of median and ulnar neuropathies and to differentiate it from non entrapment type of neuropathy, testing on legs is recommended. If similar signs of neuropathy are found in the lower extremities, non entrapment etiologies should be looked at too. MR SPINE CERVICAL without CONTRAST 11/15/23 at [facility] INDICATION: Spondylosis with radiculopathy. Carpal tunnel syndrome bilateral upper limbs. Anesthesia of skin. Neck pain that radiates into left arm and intermittently into right arm for 4 months. No known injury. TECHNIQUE: Unenhanced multiplanar, multisequence MR imaging of the cervical spine. COMPARISON: None Available. FINDINGS: Normal cervical alignment is demonstrated. Vertebral heights are well maintained. Craniocervical junction is unremarkable. Bone marrow signal is within normal limits, and no suspicious osseous lesion is identified. Prevertebral and paraspinal soft tissues are within normal limits. Visualized portions of the posterior fossa are unremarkable. Cervical cord demonstrates normal course, caliber, and signal characteristics. No epidural fluid collection or hematoma is identified. At C2-3 there is no significant disc herniation or protrusion. No central canal or neural foraminal stenosis is demonstrated. At C3-4 disc-osteophyte complex with moderate canal narrowing and moderate bilateral foraminal narrowing. At C4-5 disc-osteophyte complex with erwc-yg-howzshjc canal narrowing and moderate bilateral foraminal narrowing.. At C5-6 disc-osteophyte complex with ords-cp-hqdihgoo canal narrowing and at least moderate bilateral foraminal narrowing.. At C6-7 disc-osteophyte complex with zmki-et-fupzygud canal narrowing and hvlq-ll-tddukodl bilateral foraminal narrowing.. At C7-T1 disc-osteophyte complex slightly eccentric to the left. There is loqk-qm-muxhhjzf canal narrowing, fpyc-zi-vugnicbs right and at least moderate left foraminal narrowing.. IMPRESSION: 1.Cwqz-rs-qocdwdak multilevel degenerative disc disease with loss of disc height and disc desiccation seen diffusely throughout the cervical spine. 2.Vertebral heights are preserved. No malalignments. 3.No high-grade or limiting canal stenosis or disc herniation. 4.Disc-osteophyte complex with multilevel foraminal narrowing as above. 5.No STIR signal abnormality to suggest bone marrow edema, soft tissue or ligamentous injury. Assessment & Plan Assessment & Plan (1) Bilateral hand numbness: Comment: 1. 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 2. 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 3. Bilateral medial plexus injury, which might be due to his history of shoulder surgeries. Clinical correlation is recommended. Code(s): R20.0 - Anesthesia of skin Category: Medical (2) Bilateral carpal tunnel syndrome: Code(s): G56.03 - Carpal tunnel syndrome, bilateral upper limbs Category: Medical (3) Cervical spondylosis: Code(s): M47.812 - Spondylosis without myelopathy or radiculopathy, cervical region Category: Medical (4) Cervical radiculopathy: Code(s): M54.12 - Radiculopathy, cervical region Category: Medical (5) Cervical disc disease: Code(s): M50.90 - Cervical disc disorder, unspecified, unspecified cervical region Category: Medical Plan Discussed interventional treatments for multifactorial chronic neck pain due to significant degenerative disc disease with spondylosis and multilevel disc osteophytes as well as moderate central and neural foraminal narrowing. Will proceed with C6-C7 Interlaminar SHANIQUE with local and fluoroscopy for radicular symptoms. Subsequently, we will plan for bilateral diagnostic C4-C5 C6 MBB potential peripheral nerve stimulation procedures for a longer-term pain control his chronic neck pain. Expectations, risks and benefits were reviewed. Patient is aware he will be contacted to schedule this procedure. Patient is encouraged to reschedule appointment with Hand Specialist to address asuqmzfl-sg-oswwyn carpal tunnel syndrome, worse on the right side. Scripts sent for bilateral wrist braces and gabapentin to his pharmacy. Side effects and precautions were discussed with patient. He will start gabapentin at bedtime for few days and gradually titrate up to BID and TID if well tolerated. Reports previous history of gabapentin use without any side effects. All questions were answered and the patient is in agreement of plan. Follow-up after injections and sooner as needed. Medications: New gabapentin 300 mg PO TID 30 days 90 caps 0RF pain G56.03 - Carpal tunnel syndrome, bilateral upper limbs, M47.812 - Spondylosis without myelopathy or radiculopathy, cervical region, M54.12 - Radiculopathy, cervical region, R20.0 - Anesthesia of skin arm brace (Wrist Brace Large) As directed 2 ea 0RF pain G56.03 - Carpal tunnel syndrome, bilateral upper limbs, R20.0 - Anesthesia of skin Coding Level of Care Code Est Pt Level 4 (05165) Complex EM visit Add On G2211 Diagnoses Bilateral hand numbness R20.0 Bilateral carpal tunnel syndrome G56.03 Cervical spondylosis M47.812 Cervical radiculopathy M54.12 Cervical disc disease M50.90
== END 2023-12-07 09:40 | disposition home or self-care (01) ==
LOC: HO.PMC 08:51
PROVIDERS: PCP Internal Medicine; Visit Provider Nurse Practitioner Family
DX: R20.0 Anesthesia of skin (principal); G56.03 Carpal tunnel syndrome, bilateral upper limbs; M47.812 Spondylosis without myelopathy or radiculopathy, cervical region; M50.90 Cervical disc disorder, unspecified, unspecified cervical region
CPT/HCPCS: 99214; G2211

== ENCOUNTER → 2023-12-07 08:51 | Outpatient (BNVA) | payer MEDICARE, OTHER, SELFPAY | PROVIDERS: PCP Internal Medicine; Visit Provider Nurse Practitioner Family | DX: R20.0 Anesthesia of skin (principal); G56.03 Carpal tunnel syndrome, bilateral upper limbs; M47.812 Spondylosis without myelopathy or radiculopathy, cervical region; M50.90 Cervical disc disorder, unspecified, unspecified cervical region | CPT/HCPCS: 99212 ==

== ENCOUNTER 2023-12-27 08:01 | Outpatient (REF) | payer MEDICARE, OTHER, SELFPAY | END 2023-12-27 08:02 | disposition home or self-care (01) | LOC: CF 08:01 | PROVIDERS: Visit Provider Internal Medicine | DX: M54.12 Radiculopathy, cervical region (principal) | CPT/HCPCS: 62321; J1100; J2003; Q9967 ==

== ENCOUNTER 2023-12-27 10:06 | Outpatient (AMB) | payer MEDICARE, OTHER, SELFPAY ==
[2023-12-27 10:29] VITALS: BP 163/92; PULSE 64; O2SAT 94
--- NOTE | 2023-12-27 10:29 | MHC.OFFVIS ---
Vital Signs 12/27/23 10:29 12/27/23 11:21 BP 163/92 H 141/96 H Blood Pressure Location Rt brachial Lt brachial Position Sitting Sitting Pulse 64 62 Pulse Source Pulse Oximeter Pulse Oximeter Pulse Oximetry (%) 94 96 Oxygen Delivery Method Room Air Room Air Intake Visit Reasons: Shahab interlaminar C5-C6 SHANIQUE Allergies Penicillins Adverse Reaction (Intermediate, Verified 12/07/23 09:01) Rash HPI HPI Shahab interlaminar C5-C6 SHANIQUE: Details: Patient presents for scheduled procedure. Denies any recent cough, cold, infection, fever or other significant changes in medical history since last office visit. [facility] Medical History DELMIS positive Transaminitis Prostate cancer CHF (congestive heart failure) Bilateral hand numbness Polymyalgia rheumatica Osteoarthritis of lumbar spine Cervical disc disease Bilateral primary osteoarthritis of knee Bilateral carpal tunnel syndrome Cervical spondylosis Surgical History H/O heart artery stent History of EMG H/O shoulder replacement Family History Family/Other Autoimmune disease Father Heart disease Pancreatic cancer Mother No problems noted. 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 The patient was placed in the prone position. The cervicothoracic area was widely prepped with chloraprep and draped in sterile fashion. Fluoroscopic guidance was used to identify the desired interlaminar space and for needle placement. Subcutaneous 0.5% lidocaine was used to anesthetize the skin overlying the target. A 20-gauge Zambrano needle was advanced to the epidural space using loss of resistance to contrast technique under fluoroscopic AP and contralateral oblique views. There was no evidence of heme or CSF and no paresthesias were elicited with needle placement. Confirmation of epidural needle placement was performed with 1cc of omnipaque 180. Next 3 ml 0.5% lidocaine mixed with 10 mg dexamethasone was administered epidurally with no pain elicited on injection. The needle tract tubing was then cleared with 1 ml of 0.5% lidocaine. The needle was removed, skin cleansed and a sterile bandage was applied. The patient tolerated the procedure well and no complications were encountered. Following the procedure the patient's vital signs were stable. The patient was discharged home in good condition with post-procedural instructions. Time Out: Immediately prior to the procedure, the following was verbally confirmed that there is a signed consent form and that the correct patient, planned procedure, site and side are consistent with documentation and that necessary equipment and/or blood products are available prior to the start of the case. Complications: none EBL: <2 cc Coding 27043 - Cervical Epidural/Interlaminar with fluoroscopy Procedure code (CPT) selection complete Assessment & Plan Assessment & Plan (1) Cervical radiculopathy: Code(s): M54.12 - Radiculopathy, cervical region Category: Medical Plan Patient is status post right parasagittal C6-7 interlaminar SHANIQUE. Patient tolerated procedure well and was discharged home in stable condition with discharge instructions. All questions were answered. We will follow-up via telephone or in clinic to assess response to therapy. A follow-up appointment was made during today's visit. Orders: Orders FL guidance in treatment room 12/27/23 M54.12 - Radiculopathy, cervical region Coding Level of Care Code Procedure Only Diagnoses Cervical radiculopathy M54.12 CPT Codes Coding - Joint 10: 99160 - Cervical Epidural/Interlaminar with fluoroscopy ([id number])
[2023-12-27 11:21] VITALS: BP 141/96; PULSE 62; O2SAT 96
== END 2023-12-27 11:20 | disposition home or self-care (01) ==
LOC: HO.PMCPRC 10:06
PROVIDERS: PCP Internal Medicine; Visit Provider Internal Medicine
DX: M54.12 Radiculopathy, cervical region (principal)
CPT/HCPCS: 62321

== ENCOUNTER 2024-01-24 09:48 | Outpatient (REF) | payer MEDICARE, OTHER, SELFPAY ==
--- NOTE | ~2024-01-24 | XR_ITS ---
EXAMINATION: XR HIP 2 OR MORE VIEWS BILATERAL CLINICAL INFORMATION: , M25.551 - Pain in right hip COMPARISON: None available at the time of this dictation. TECHNIQUE: Frontal and lateral views of the hip acquired. , AP pelvis 5 views FINDINGS: There is no evidence of acute fracture or dislocation. There are mild degenerative arthritic changes of the hip evident by sclerotic changes of the acetabular roof and narrowing of the joint space. Mild degenerative changes of the symphysis pubis. Mild degenerative changes of the SI joints. Adjacent pubic rami are intact. Surrounding soft tissues are unremarkable. XR/XR hip BI w PEL1V IMPRESSION: Mild degenerative arthritis. No fracture, no destructive bone lesion. Electronically signed by: Joel Wynne MD 01/26/2024 11:49 AM [facility]
== END 2024-01-24 09:49 | disposition home or self-care (01) ==
LOC: HO.HMGCX 09:48
PROVIDERS: PCP Internal Medicine; Visit Provider Nurse Practitioner Family
DX: M25.551 Pain in right hip (principal); M25.552 Pain in left hip; R20.0 Anesthesia of skin; G56.03 Carpal tunnel syndrome, bilateral upper limbs; M47.812 Spondylosis without myelopathy or radiculopathy, cervical region; M50.90 Cervical disc disorder, unspecified, unspecified cervical region; M25.78 Osteophyte, vertebrae
CPT/HCPCS: 73521; 99212

== ENCOUNTER 2024-01-24 09:48 | Outpatient (AMB) | payer MEDICARE, OTHER, SELFPAY ==
--- NOTE | 2024-01-24 09:55 | A.OFFVIS_ITS ---
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 Hudson. Patient reports 100% pain relief for 2 weeks only with significant improvement in his neck symptoms not his bilateral hand pain and tingling. Neck pain is constant and progressively disabling. Patient reports worse neck pain night when he frequently has to get up and sit outside of his bed and move his head and neck to the left to relief pain and tingling in his right arm and axilla. He also reports significantly limited and painful motions. Patient is scheduled for repeat EMG test tomorrow for upper extremities with follow-up with Hand Specialist next Sunday. He suffers from significant hand arthritis and jxdmxyqn-[id number] CTS. Patient is currently taking tramadol 100 mg b.i.d. and gabapentin 300 t.i.d. with partial pain relief. Neck pain has been resistant to conservative treatments including physical therapy and therapeutic SHANIQUE injection. We will proceed with Neurosurgery referral as next steps. Patient also reports bilateral hip pain and chronic low back pain, but hip is not as worse as neck pain. Denies any recent cough, cold, infection, fever or other significant changes in medical history since last office visit. Past procedures: 12/27/23: Right parasagittall C6-C7 interlaminar SHANIQUE-100% pain relief for 2 weeks PRIOR: Patient presents today for follow-up to assess response to physical therapy and to review recent cervical spine MRI results. He continues to endorse significant neck pain with every movement and bilateral upper extremities numbness and tingling and pain in both of his hands, most severe in his right hand. Patient reports he can not get adequate sleep due to significant numbness, paresthesia, tingling and pain in his right hand and fingers. He constantly repositions himself at night and is a side sleeper. Patient reports he had canceled appointment with a Hand Specialist until we review his MRI results today. He completed 4 sessions of physical therapy at [facility] with minimal improvement in his pain, symptoms or functioning. He continues to take tramadol, heat, topical applications and tried magnesium glycinate with minimal pain relief. Patient has CHF and has been avoiding muscle relaxants. Denies any fever or chills, dizziness, shortness of breath, chest pain, imbalance issues, bladder or bowel dysfunction or saddle anesthesia. Reports bilateral hand stiffness, decreased range of motion, and weakness due to significant num bness and tingling in both hands that radiates up to his shoulders, worse on the right side as well as difficulty with pinching or grasping objects. PRIOR 11/05/23: Patient is a pleasant 68 years old male with prior history of polymyalgia rheumatica, osteoarthritis, polyarthralgia, CHF, prostate cancer (annual biopsies and PSA), back pain with h/o ruptured disc, bilateral carpal tunnel and cubital tunnel syndromes, h/o bilateral shoulder surgery (2019, [facility] [place] presents today for initial evaluation for chronic neck pain with radiculopathy. Denies any recent injury, trauma, or falls. 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 At age 16, he had left arm injury when he was running down the hill and landed on broken glass with his left hand. Patient reports chronic bilateral arm and hand weakness and numbness, worse on the left since injury and bilateral shoulder surgeries as well as generative arthritis in his hands and neck. Neck pain is axial and also reports shooting neck pain into his shoulder and upper extremities with associated numbness and tingling which is worst at night. Patient reports previously was evaluated by Hand Surgeon in the recent past and was deemed non-surgical. Patient also has significant osteoarthritic changes of both hands. He recently was tapered off prednisone due to minimal benefit. Pain affects his daily activities and functioning, ROM, sleep, social interactions and quality of life. Neck pain is constant and is rated 6-7/10. Patient denies previous PT or chiropractic therapy. Denies previous spine surgery but has undergone 39 back injections and RFA with partial relief. He reports due to his severely ruptured disc in his lower back, he was considered high risk for back surgery in the past. Cervical spine xray and EMG reports are noted below. Denies any fever or chills, chest pain, dizziness, dyspnea, bladder or bowel dysfunction or saddle anesthesia. Oswestry Neck Disability Score=23 (moderate disability) Location: Neck pain, bilateral hand numbness and tingling with mild weakness, L>R Duration: Chronic pain due to degenerative arthritis, worsening for past >6 months Characteristics of symptom or complaint: Stabbing, aching, shooting, tiring, exhausting , numbness, tingling, sore Aggravating or associated factors: Movements, extension and flexion, stress, cold weather Relieving factors: Tramadol, prednisone (tapered off), heat, topical applications Treatment: Stretching exercises [facility] Medical History DELMIS positive Transaminitis Prostate cancer CHF (congestive heart failure) Bilateral hand numbness Polymyalgia rheumatica Osteoarthritis of lumbar spine Cervical disc disease Bilateral primary osteoarthritis of knee Bilateral carpal tunnel syndrome Cervical spondylosis Surgical History H/O heart artery stent History of EMG H/O shoulder replacement Family History Family/Other Autoimmune disease Father Heart disease Pancreatic cancer Mother No problems noted. 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 Alert and oriented. Mood and affect appropriate. Follows and participates in conversation appropriately. Respiratory effort is unlabored. No cough. Able to transition from sit to stand unassisted. Ambulates with bilaterally normal heel strike and toe off. Neck Other: Patient with decreased cervical ROM in all planes/especially with lateral rotation bilaterally, worse on the right. Reports increased pain with cervical extension and flexion. Spurling compression test is positive. Elvey's tension test positive bilaterally, with radiation of pain from neck to wrist and hands and to axialla on the right. Lhermitte's test was negative. DTR diminished bilaterally. Patient demonstrated 5/5 right and 4/5 left motor strength of bilateral upper extremities. 2 + radial pulses. Significant tightness throughout upper and lower trapezius and rhomboid muscles. Mild paravertebral tenderness over lower cervical facet joints bilaterally. +Phalen and Tinel tests bi laterally, right>left. Decreased ROM of bilateral thumbs and 2-4th fingers, difficulty with pinching or grasping due to pain, tingling and numbness. Neck: Yes no lymphadenopathy, Yes supple, No anterior neck swelling, Yes no JVD, No prominent supraclavicular fat pad and Yes prominent dorsocervical fat pad Back/Spine/Pelvis Cervical Spine: loss of normal cervical lordosis, cervical muscular tenderness, pain with cervical ROM, No Cervical spine scars present, No cervical spasm, Cervical spine tenderness and No step off deformity Thoracic/Lumbar Spine: thoracic and lumbar spine normal to inspection, No Thoracic/lumbar spine scar(s), Lasegue's sign negative, pain with thoraco-lumbar ROM, thoraco-lumbar ROM limited, No thoracic spinal tenderness and lumbar spinal tenderness at L4 and at L5 Extrem General: Yes capillary refill normal, Yes no clubbing, cyanosis or edema and Yes no calf tenderness Results Reviewed Results Reviewed: XR CERVICAL SPINE 09/03/23 CLINICAL INFORMATION: Polyarticular osteoarthritis. FINDINGS: There is bony demineralization. Vertebral body heights are normal. At C5-C6 and C6-C7, there is moderately severe disc space narrowing, with endplate arthropathy. At C7-T1, there is a 4 mm anterolisthesis. There is moderate disc space narrowing at C2-C3 and C3-C4. No acute fracture or spondylolisthesis is seen. The posterior elements are intact. There is multi-level cervical endplate and facet arthropathy. The dens is intact. No prevertebral soft tissue swelling is seen. IMPRESSION: There is multi-level cervical degenerative disc disease and endplate and facet arthropathy. Degenerative disc disease is most pronounced at C5-C6 and C6-C7, where it is moderately severe. NE electromyogram (EMG); NE nerve conduction velocity 09/29/21 Bilateral median and ulnar motor and sensory studies were performed, bilateral radial sensory studies were performed, bilateral median and lateral antecubital sensory studies were performed. Paraspinal muscles were tested with a needle. IMPRESSION: 1. 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 2. 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 3. Bilateral medial plexus injury, which might be due to his history of shoulder surgeries. Clinical correlation is recommended. 4. Because of the extent and the type of median and ulnar neuropathies and to differentiate it from non entrapment type of neuropathy, testing on legs is recommended. If similar signs of neuropathy are found in the lower extremities, non entrapment etiologies should be looked at too. MR SPINE CERVICAL without CONTRAST 11/15/23 at [facility] INDICATION: Spondylosis with radiculopathy. Carpal tunnel syndrome bilateral upper limbs. Anesthesia of skin. Neck pain that radiates into left arm and intermittently into right arm for 4 months. No known injury. TECHNIQUE: Unenhanced multiplanar, multisequence MR imaging of the cervical spine. COMPARISON: None Available. FINDINGS: Normal cervical alignment is demonstrated. Vertebral heights are well maintained. Craniocervical junction is unremarkable. Bone marrow signal is within normal limits, and no suspicious osseous lesion is identified. Prevertebral and paraspinal soft tissues are within normal limits. Visualized portions of the posterior fossa are unremarkable. Cervical cord demonstrates normal course, caliber, and signal characteristics. No epidural fluid collection or hematoma is identified. At C2-3 there is no significant disc herniation or protrusion. No central canal or neural foraminal stenosis is demonstrated. At C3-4 disc-osteophyte complex with moderate canal narrowing and moderate bilateral foraminal narrowing. At C4-5 disc-osteophyte complex with wjbl-uz-cgzwemto canal narrowing and moderate bilateral foraminal narrowing.. At C5-6 disc-osteophyte complex with cajk-gk-dlhplriv canal narrowing and at least moderate bilateral foraminal narrowing.. At C6-7 disc-osteophyte complex with ccrf-xb-ummiovch canal narrowing and mgfb-ok-tjmltnjc bilateral foraminal narrowing.. At C7-T1 disc-osteophyte complex slightly eccentric to the left. There is tmgz-fz-ovwkwiqe canal narrowing, xplt-ms-goynzpfp right and at least moderate left foraminal narrowing.. IMPRESSION: 1.Yfgo-rq-gldkciuf multilevel degenerative disc disease with loss of disc height and disc desiccation seen diffusely throughout the cervical spine. 2.Vertebral heights are preserved. No malalignments. 3.No high-grade or limiting canal stenosis or disc herniation. 4.Disc-osteophyte complex with multilevel foraminal narrowing as above. 5.No STIR signal abnormality to suggest bone marrow edema, soft tissue or ligamentous injury. Assessment & Plan Assessment & Plan (1) Bilateral hand numbness: Comment: 1. 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 2. 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 3. Bilateral medial plexus injury, which might be due to his history of shoulder surgeries. Clinical correlation is recommended. Code(s): R20.0 - Anesthesia of skin Category: Medical (2) Bilateral carpal tunnel syndrome: Code(s): G56.03 - Carpal tunnel syndrome, bilateral upper limbs Category: Medical (3) Cervical spondylosis: Code(s): M47.812 - Spondylosis without myelopathy or radiculopathy, cervical region Category: Medical (4) Cervical radiculopathy: Code(s): M54.12 - Radiculopathy, cervical region Category: Medical (5) Cervical disc disease: Code(s): M50.90 - Cervical disc disorder, unspecified, unspecified cervical region Category: Medical (6) Degeneration of intervertebral disc of cervical region with osteophyte of cervical vertebra: Code(s): M50.30 - Other cervical disc degeneration, unspecified cervical region; M25.78 - Osteophyte, vertebrae Category: Medical (7) Bilateral hip pain: Code(s): M25.551 - Pain in right hip; M25.552 - Pain in left hip Category: Medical Plan Patient is one month status post right parasagittal C6-7 interlaminar SHANIQUE with 100% pain relief in neck only for 2 weeks. He suffers from multifactorial chronic neck pain due to significant degenerative disc disease with spondylosis and multilevel disc osteophytes as well as moderate central and neural foraminal narrowing. Neck pain has been resistant to conservative treatments including physical therapy and therapeutic SHANIQUE injection. We will proceed with Neur osurgery referral as next steps. Patient is scheduled to undergo EMG test for upper extremities tomorrow and follow up with Hand Specialist next Sunday to address ovlnkwbi-rj-fkracg carpal tunnel syndrome unresponsive to wrist braces and gabapentin. He also takes tramadol prescribed by his PCP. Bilateral hip xray to assess for degenerative changes. Briefly discussed treatments for hip arthritis. Patient will be called with xray results. All questions were answered and the patient is in agreement of plan. Follow-up after Neurosurgery referral and sooner as needed. Orders: Orders XR hip BI w PEL1V Today M25.551 - Pain in right hip, M25.552 - Pain in left hip Referrals Neurosurgery Referral M25.78 - Osteophyte, vertebrae, M50.30 - Other cervical disc degeneration, unspecified cervical region, M54.12 - Radiculopathy, cervical region, R20.0 - Anesthesia of skin Coding Level of Care Code Est Pt Level 4 (13220) Complex EM visit Add On G2211 Diagnoses Bilateral hand numbness R20.0 Bilateral carpal tunnel syndrome G56.03 Cervical spondylosis M47.812 Cervical radiculopathy M54.12 Cervical disc disease M50.90 Degeneration of intervertebral disc of cervical region with osteophyte of cervical vertebra M50.30; M25.78 Bilateral hip pain M25.551; M25.552
[2024-01-24 09:58] VITALS: BP 137/91; PULSE 75; O2SAT 96; BMI 35.3
== END 2024-01-24 10:22 | disposition home or self-care (01) ==
PROVIDERS: PCP Internal Medicine; Visit Provider Nurse Practitioner Family
DX: R20.0 Anesthesia of skin (principal); M47.812 Spondylosis without myelopathy or radiculopathy, cervical region; M54.12 Radiculopathy, cervical region; M50.90 Cervical disc disorder, unspecified, unspecified cervical region; M50.30 Other cervical disc degeneration, unspecified cervical region; M25.78 Osteophyte, vertebrae; M25.551 Pain in right hip; M25.552 Pain in left hip
CPT/HCPCS: 99214; G2211

== ENCOUNTER 2024-01-25 12:55 | Outpatient (REF) | payer MEDICARE, OTHER, SELFPAY ==
--- NOTE | 2024-01-25 12:58 | EMG_ITS ---
Chief complaint: Bilateral hand numbness EMG done by Dr. Mar 2021 showed bilateral Carpal Tunnel Syndrome and bilateral ulnar neuropathy. Reason for referral: Evaluate for Carpal Tunnel Syndrome and ulnar neuropathy Referred by: Segundo BORGES Procedure done: Bilateral upper extremities NCS/EMG Precautions and/or limitations: None The limb temperature was monitored continuously and remained between 32-36 degrees C during the performance of the NCS. Ulnar motor NCS was performed with moderate elbow flexion between 70-90 degrees, with across-elbow distance of 10 cm. Nerve Conduction Studies Anti Sensory Summary Table ?Stim Site NR Onset (ms) Norm Onset (ms) Peak (ms) Norm Peak (ms) O-P Amp (?V) Norm O-P Amp Site1 Site2 Delta-0 (ms) Dist (cm) Phoenix (m/s) Norm Phoenix (m/s) Left Median Anti Sensory (2nd Digit) Wrist NR <3.6 >10 Wrist 2nd Digit 14.0 Right Median Anti Sensory (2nd Digit) Wrist NR <3.6 >10 Wrist 2nd Digit 14.0 Right Radial Anti Sensory (Thumb) Forearm ? 1.9 2.3 <3.1 5.5 Forearm Thumb 1.9 0.0 Left Ulnar Anti Sensory (5th Digit) Wrist NR <3.7 >15.0 Wrist 5th Digit 14.0 Right Ulnar Anti Sensory (5th Digit) Wrist ? 1.5 3.6 <3.7 21.8 >15.0 Wrist 5th Digit 1.5 14.0 93 Motor Summary Table ?Stim Site NR Onset (ms) Norm Onset (ms) O-P Amp (mV) Norm O-P Amp iAmp (mV) Amp (1st) (%) Site1 Site2 Delta-0 (ms) Dist (cm) Phoenix (m/s) Norm Phoenix (m/s) Left Median Motor (Abd Poll Brev) Wrist ? 6.3 <3.9 7.3 >4.5 9.2 100.0 Elbow Wrist 5.0 23.0 46 >45 Elbow ? 11.3 7.3 9.1 100.0 Right Median Motor (Abd Poll Brev) Wrist ? 8.7 <3.9 6.2 >4.5 7.1 100.0 Elbow Wrist 5.2 24.0 46 >45 Elbow ? 13.9 5.6 6.2 90.3 Left Ulnar Motor (Abd Dig Minimi) Wrist ? 4.1 <3.0 1.7 >5 2.2 100.0 B Elbow Wrist 5.4 22.0 41 >45 B Elbow ? 9.5 3.0 3.6 176.5 A Elbow B Elbow 2.7 10.0 37 >45 A Elbow ? 12.2 2.4 3.0 141.2 Right Ulnar Motor (Abd Dig Minimi) Wrist ? 3.0 <3.0 6.5 >5 8.8 100.0 B Elbow Wrist 4.3 23.0 53 >45 B Elbow ? 7.3 6.5 8.8 100.0 A Elbow B Elbow 1.8 10.0 56 >45 A Elbow ? 9.1 6.7 9.3 103.1 EMG ?Side Muscle Nerve Root Ins Act Fibs Psw Amp Dur Poly Recrt Int Pat Comment Right 1stDorInt Ulnar C8-T1 Nml Nml Nml Nml Nml 0 Nml Complete Right FlexCarRad Median C6-7 Nml Nml Nml Nml Nml 0 Nml Complete Right Biceps Musculocut C5-6 Nml Nml Nml Nml Nml 0 Nml Complete Right Triceps Radial C6-7-8 Nml Nml Nml Nml Nml 0 Nml Complete Right Deltoid Axillary C5-6 Nml Nml Nml Nml Nml 0 Nml Complete Left 1stDorInt Ulnar C8-T1 Nml Nml Nml Nml Nml 0 Nml Complete Left Biceps Musculocut C5-6 Nml Nml Nml Nml Nml 0 Nml Complete Left Triceps Radial C6-7-8 Nml Nml Nml Nml Nml 0 Nml Complete Left Deltoid Axillary C5-6 Nml Nml Nml Nml Nml 0 Nml Complete Left FlexCarpiUln Ulnar C8,T1 Nml Nml Nml Nml Nml 0 Nml Complete Paraspinal EMG ?Side Muscle Nerve Root Ins Act Fibs Psw Comment Right Cervical Upper Rami Nml Nml Nml Right Cervical Mid Rami Nml Nml Nml Right Cervical Lower Rami Nml Nml Nml Left Cervical Upper Rami Nml Nml Nml Left Cervical Mid Rami Nml Nml Nml Left Cervical Lower Rami Nml Nml Nml FINDINGS: Bilateral median motor nerves showed prolonged distal latency, normal amplitude and normal conduction velocity. Left ulnar motor nerve showed prolonged distal latency, small amplitude and slow conduction velocity. Bilateral median sensory nerve absent response. Left ulnar sensory nerve absent response. All other nerves tested were within normal. Concentric needle EMG was performed in selected muscles of the bilateral upper extremities and cervical paraspinals. Study did not reveal signs of electric abnormalities as shown in the table above. IMPRESSION: 1. This is an abnormal study. 2. There is electrodiagnostic evidence for bilateral moderate-severe median neuropathy at the wrist, consistent with carpal tunnel syndrome. 3. There is electrodiagnostic evidence for left ulnar neuropathy at the elbow. 4. There is no electrodiagnostic evidence for brachial plexopathy or cervical radiculopathy. 5. There is no electrodiagnostic evidence for right ulnar neuropathy. Thank you for your kind referral. Sarah Pabon MD, PUMA Board Certified, [place] [employer] and [employer] (ABPMR) Board Certified, [place] [employer] Electrodiagnostic Medicine (ABEM) CODIN [phone] x 2 MTDD
== END 2024-01-25 12:56 | disposition home or self-care (01) ==
LOC: HO.NEURO 12:55
DX: R20.0 Anesthesia of skin (principal); R20.2 Paresthesia of skin
CPT/HCPCS: 95886; 95911

== ENCOUNTER → 2024-01-25 12:58 | Outpatient (BNV) | payer MEDICARE, OTHER, SELFPAY | PROVIDERS: Visit Provider Physical Medicine & Rehabilitation | DX: G56.03 Carpal tunnel syndrome, bilateral upper limbs (principal); G56.22 Lesion of ulnar nerve, left upper limb | CPT/HCPCS: 95886; 95911 ==

== ENCOUNTER 2024-01-28 13:53 | Outpatient (AMB) | payer MEDICARE, OTHER, SELFPAY ==
--- NOTE | 2024-01-28 14:03 | MHC.OFFVIS ---
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 Patient had an EMG done on 09/29/21 and 01/25/24. Patient reports extreme pain with numbness and tingling. He states is has been a long time since he has had a good night sleep due to this. He is woken up at night and is unable to return to bed once awake. Difficulty closing hand, bending fingers, gripping, squeezing, and lifting. He avoids lifting with right hand due to pain in wrist. Reports the 3rd and 4th finger have the most numbness and tingling, 1st and 4th fingers occasionally gets numbness and tingling followed by pain. Denies catching and locking of B/L hand digits. He says he has a bone spur pinching a nerve in his neck, went to PT for this and thinks this still may be an issue. Reports he is seeing a surgeon for his neck. Patient wants to discuss surgical intervention today. 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 Patient had an EMG done on 09/29/21 and 01/25/24. Patient reports extreme pain with numbness and tingling. He states is has been a long time since he has had a good night sleep due to this. He is woken up at night and is unable to return to bed once awake. Difficulty closing hand, bending fingers, gripping, squeezing, and lifting. He avoids lifting with right hand due to pain in wrist. Reports the 3rd and 4th finger have the most numbness and tingling, 1st and 4th fingers occasionally gets numbness and tingling followed by pain. Denies catching and locking of B/L hand digits. He says he has a bone spur pinching a nerve in his neck, went to PT for this and thinks this still may be an issue. Reports he is seeing a surgeon for his neck. Patient wants to discuss surgical intervention today. HPI Comments Details: Patient is a 68 YO M who presents for EMG review of bilateral hands, right worse than left. Patient reports that he has had constant numbness and tingling, pain and decreased strength of both hands for many years, and states that he has had a difficult time sleeping due to these symptoms. Patient had EMG performed in 01/28. No other acute complaints or concerns at this time [facility] Medical History DELMIS positive Transaminitis Prostate cancer CHF (congestive heart failure) Bilateral hand numbness Polymyalgia rheumatica Osteoarthritis of lumbar spine Cervical disc disease Bilateral primary osteoarthritis of knee Bilateral carpal tunnel syndrome Cervical spondylosis Surgical History H/O heart artery stent History of EMG H/O shoulder replacement Family History Family/Other Autoimmune disease Father Heart disease Pancreatic cancer Mother No problems noted. 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 Normal sensation to all other digits in the Rhand today. Normal sensation in the tips of all digits of the L hand today. No thenar or intrinsic wasting. Good APB muscle firing and good finger cross. Vascular: Capillary refill brisk. ROM: Patient can make a fist and extend all their digits. Skin: No lacerations or abrasions noted. General: No ecchymosis. No erythema or evidence of infection. Results Reviewed Results Reviewed: IMPRESSION: 1. This is an abnormal study. 2. There is electrodiagnostic evidence for bilateral moderate-severe median neuropathy at the wrist, consistent with carpal tunnel syndrome. 3. There is electrodiagnostic evidence for left ulnar neuropathy at the elbow. 4. There is no electrodiagnostic evidence for brachial plexopathy or cervical radiculopathy. 5. There is no electrodiagnostic evidence for right ulnar neuropathy. Thank you for your kind referral. Sarah Pabon MD, PUMA Assessment & Plan Assessment & Plan (1) Bilateral carpal tunnel syndrome: Code(s): G56.03 - Carpal tunnel syndrome, bilateral upper limbs Category: Medical Plan 1. Carpal tunnel syndrome, right Symptoms constant, daily, worse at night I educated the patient about the condition. I discussed both operative and nonoperative treatment options. The patient would like to proceed with surgery. The risks and benefits of operative treatment were discussed with the patient and the patient wishes to proceed with surgery. These risks include, but are not limited to, risk of damage to blood vessels, nerves, tendons, infection, recurrence, incomplete relief of preoperative symptoms, persistent pain, possible need for further surgery, and the risks associated with regional blocks and/or anesthesia. Plan is to take the patient to the operating room at some point in the next few weeks for the following procedures: 1. Right carpal tunnel release under local All of the preoperative paperwork including the consent was discussed today. All of the patient's questions were answered in the clinic today. The patient understands that they will be in contact with our salesperson surgical appliances to discuss scheduling their procedure. 2. Carpal tunnel syndrome, left Symptoms intermittent, daily, worse at night Patient would like to proceed with operative intervention on the R side prior to L sided intervention Patient is informed that he can get signed up for L sided surgery at his postop visit if he is recovering well from R sided surgery Patient is amenable to this plan Coding Level of Care Code New Pt Level 4 (08911) Diagnoses Bilateral carpal tunnel syndrome G56.03
[2024-01-28 14:04] VITALS: BMI 35.3
== END 2024-01-28 14:31 | disposition home or self-care (01) ==
PROVIDERS: PCP Internal Medicine
DX: G56.03 Carpal tunnel syndrome, bilateral upper limbs (principal)
CPT/HCPCS: 99204

== ENCOUNTER → 2024-01-28 13:53 | Outpatient (BNVA) | payer MEDICARE, OTHER, SELFPAY | PROVIDERS: PCP Internal Medicine | DX: G56.03 Carpal tunnel syndrome, bilateral upper limbs (principal) | CPT/HCPCS: 99202 ==

== ENCOUNTER 2024-02-11 09:27 | Outpatient (AMB) | payer MEDICARE, OTHER, SELFPAY ==
--- NOTE | 2024-02-11 09:31 | A.OFFVIS_ITS ---
Vital Signs 02/11/24 09:35 Height 5 ft 11 in Weight 250 lb 8 oz BMI 34.9 BP 143/92 H Blood Pressure Location Rt brachial Position Sitting Pulse 56 Pulse Source Pulse Oximeter Intake Visit Reasons: Discuss X-Ray Results Intake Note: Pain today 0/10 Topstitcher Zigzag Required: No Accompanied by: Self / Same As Patient Allergies Penicillins Adverse Reaction (Intermediate, Verified 02/11/24 09:35) Rash HPI Comments Details: Patient presents today for follow up to review recent hip xray results. Denies any recent cough, cold, infection, fever or other significant changes in medical history since last office visit. PRIOR: Patient presents today to assess response to right parasagittal C6-7 interlaminar SHANIQUE on 12/27/[address] Hudson. Patient reports 100% pain relief for 2 weeks only with significant improvement in his neck symptoms not his bilateral hand pain and tingling. Neck pain is constant and progressively disabling. Patient reports worse neck pain night when he frequently has to get up and sit outside of his bed and move his head and neck to the left to relief pain and tingling in his right arm and axilla. He also reports significantly limited and painful motions. Patient is scheduled for repeat EMG test tomorrow for upper extremities with follow-up with Hand Specialist next Sunday. He suffers from significant hand arthritis and [id number] CTS. Patient is currently taking tramadol 100 mg b.i.d. and gabapentin 300 t.i.d. with partial pain relief. Neck pain has been resistant to conservative treatments including physical therapy and therapeutic SHANIQUE injection. We will proceed with Neurosurgery referral as next steps. Patient also reports bilateral hip pain and chronic low back pain, but hip is not as worse as neck pain. Denies any recent cough, cold, infection, fever or other significant changes in medical history since last office visit. Past procedures: 12/27/23: Right parasagittall C6-C7 interlaminar SHANIQUE-100% pain relief for 2 weeks PRIOR: Patient presents today for follow-up to assess response to physical therapy and to review recent cervical spine MRI results. He continues to endorse significant neck pain with every movement and bilateral upper extremities numbness and tingling and pain in both of his hands, most severe in his right hand. Patient reports he can not get adequate sleep due to significant numbness, paresthesia, tingling and pain in his right hand and fingers. He constantly repositions himself at night and is a side sleeper. Patient reports he had canceled appointment with a Hand Specialist until we review his MRI results today. He completed 4 sessions of physical therapy at [facility] with minimal improvement in his pain, symptoms or functioning. He continues to take tramadol, heat, topical applications and tried magnesium glycinate with minimal pain relief. Patient has CHF and has been avoiding muscle relaxants. Denies any fever or chills, dizziness, shortness of breath, chest pain, imbalance issues, bladder or bowel dysfunction or saddle anesthesia. Reports bilateral hand stiffness, decreased range of motion, and weakness due to significant numbness and tingling in both hands that radiates up to his shoulders, worse on the right side as well as difficulty with pinching or grasping objects. PRIOR 11/05/23: Patient is a pleasant 68 years old male with prior history of polymyalgia rheumatica, osteoarthritis, polyarthralgia, CHF, prostate cancer (annual bio psies and PSA), back pain with h/o ruptured disc, bilateral carpal tunnel and cubital tunnel syndromes, h/o bilateral shoulder surgery (2019, [facility]) presents today for initial evaluation for chronic neck pain with radiculopathy. Denies any recent injury, trauma, or falls. 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 At age 16, he had left arm injury when he was running down the hill and landed on broken glass with his left hand. Patient reports chronic bilateral arm and hand weakness and numbness, worse on the left since injury and bilateral shoulder surgeries as well as generative arthritis in his hands and neck. Neck pain is axial and also reports shooting neck pain into his shoulder and upper extremities with associated numbness and tingling which is worst at night. Patient reports previously was evaluated by Hand Surgeon in the recent past and was deemed non-surgical. Patient also has significant osteoarthritic changes of both hands. He recently was tapered off prednisone due to minimal benefit. Pain affects his daily activities and functioning, ROM, sleep, social interactions and quality of life. Neck pain is constant and is rated 6-7/10. Patient denies previous PT or chiropractic therapy. Denies previous spine surgery but has undergone 39 back injections and RFA with partial relief. He reports due to his severely ruptured disc in his lower back, he was considered high risk for back surgery in the past. Cervical spine xray and EMG reports are noted below. Denies any fever or chills, chest pain, dizziness, dyspnea, bladder or bowel dysfunction or saddle anesthesia. Oswestry Neck Disability Score=23 (moderate disability) Location: Neck pain, bilateral hand numbness and tingling with mild weakness, L>R Duration: Chronic pain due to degenerative arthritis, worsening for past >6 months Characteristics of symptom or complaint: Stabbing, aching, shooting, tiring, exhausting , numbness, tingling, sore Aggravating or associated factors: Movements, extension and flexion, stress, cold weather Relieving factors: Tramadol, prednisone (tapered off), heat, topical applications Treatment: Stretching exercises [facility] Medical History DELMIS positive Transaminitis Prostate cancer CHF (congestive heart failure) Bilateral hand numbness Polymyalgia rheumatica Osteoarthritis of lumbar spine Cervical disc disease Bilateral primary osteoarthritis of knee Bilateral carpal tunnel syndrome Cervical spondylosis Surgical History H/O heart artery stent History of EMG H/O shoulder replacement Family History Family/Other Autoimmune disease Father Heart disease Pancreatic cancer Mother No problems noted. 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 Alert and oriented. Mood and affect appropriate. Follows and participates in conversation appropriately. Respiratory effort is unlabored. No cough. Able to transition from sit to stand unassisted. Ambulates with bilaterally normal heel strike and toe off. Neck Neck: Yes normal visual inspection, Yes no lymphadenopathy, Yes supple, No anterior neck swelling, Yes no JVD, No prominent supraclavicular fat pad and Yes prominent dorsocervical fat pad Back/Spine/Pelvis Other: No groin pain with I/E hip rotations. Cervical Spine: loss of normal cervical lordosis, cervical muscular tenderness, pain with cervical ROM, No Cervical spine scars present, No cervical spasm, Cervical spine tenderness and No step off deformity Thoracic/Lumbar Spine: thoracic and lumbar spine normal to inspection, No Thoracic/lumbar spine scar(s), Lasegue's sign negative, pain with thoraco-lumbar ROM, thoraco-lumbar ROM limited, No thoracic spinal tenderness and lumbar spinal tenderness at L4 and at L5 Extrem General: Yes capillary refill normal, Yes no clubbing, cyanosis or edema and Yes no calf tenderness Results Reviewed Results Reviewed: XR HIP 2 OR MORE VIEWS BILATERAL 01/24/24 CLINICAL INFORMATION: M25.551 - Pain in right hip FINDINGS: There is no evidence of acute fracture or dislocation. There are mild degenerative arthritic changes of the hip evident by sclerotic changes of the acetabular roof and narrowing of the joint space. Mild degenerative changes of the symphysis pubis. Mild degenerative changes of the SI joints. Adjacent pubic rami are intact. Surrounding soft tissues are unremarkable. IMPRESSION: Mild degenerative arthritis. No fracture, no destructive bone lesion. Assessment & Plan Assessment & Plan (1) Bilateral hip pain: Code(s): M25.551 - Pain in right hip; M25.552 - Pain in left hip Category: Medical (2) Bilateral primary osteoarthritis of hip: Code(s): M16.0 - Bilateral primary osteoarthritis of hip Category: Medical (3) Osteoarthritis of lumbar spine: Code(s): M47.816 - Spondylosis without myelopathy or radiculopathy, lumbar region Category: Medical Qualifiers: Spinal osteoarthritis complication: without myelopathy or radiculopathy Qualified Code(s): M47.816 - Spondylosis without myelopathy or radiculopathy, lumbar region (4) Cervical radiculopathy: Code(s): M54.12 - Radiculopathy, cervical region Category: Medical Plan Bilateral hip xray imaging reports have been discussed with patient. Discussed interventional treatments such as fluoroscopy guided intra-articular hip steroid injections and potential course of formal PT. Patient reports he recently was prescribed prednisone taper and found this to be very beneficial up to 90% pain relief in his neck, arm and back symptoms as well as his hip joints. He would like to hold off on injection or PT and will notify our office on when his pain symptoms worsen. He is also scheduled to see Dr. Andrade at [facility] for Neurosurgery evaluation for cervical radiculopathy. All questions were answered and the patient is in agreement of plan. Follow-up as needed. Coding Level of Care Code Est Pt Level 3 (51602) Complex EM visit Add On G2211 Diagnoses Bilateral hip pain M25.551; M25.552 Bilateral primary osteoarthritis of hip M16.0 Spondylosis of lumbar region without myelopathy or radiculopathy M47.816 Spinal osteoarthritis complication: without myelopathy or radiculopathy Cervical radiculopathy M54.12
[2024-02-11 09:35] VITALS: BP 143/92; PULSE 56; BMI 34.9
== END 2024-02-11 10:01 | disposition home or self-care (01) ==
PROVIDERS: PCP Internal Medicine; Visit Provider Nurse Practitioner Family
DX: M25.551 Pain in right hip (principal); M25.552 Pain in left hip; M16.0 Bilateral primary osteoarthritis of hip; M47.816 Spondylosis without myelopathy or radiculopathy, lumbar region; M54.12 Radiculopathy, cervical region
CPT/HCPCS: 99213; G2211

== ENCOUNTER → 2024-03-12 08:06 | Outpatient (BNVA) | payer MEDICARE, OTHER, SELFPAY | PROVIDERS: PCP Internal Medicine; Visit Provider Student in an Organized Health Care Education/Training Program | DX: M54.2 Cervicalgia (principal); M35.3 Polymyalgia rheumatica; M15.9 Polyosteoarthritis, unspecified | CPT/HCPCS: 99212 ==

== ENCOUNTER 2024-03-26 11:01 | Day surgery (SDC) | payer MEDICARE, OTHER, SELFPAY ==
[2024-03-26 11:08] VITALS: BP 126/78; PULSE 71; RESP 16; TEMP 36.1; O2SAT 95; BMI 45.3
--- NOTE | 2024-03-26 11:30 | MHC.SHP ---
Pre-Procedural Eval Section A - 24 Hr Update-Section A only Date of Service: 03/26/24 The patient is an INPATIENT: No Changes since office visit: No Cold of Flu in the past 2 weeks, No New Medical Problems, No Changes in Medication and No Patient answered all questions The patient has been examined within 24 hours of the surgical procedure. The History & Physical has been completed within 30 days and I have reviewed it.: Yes Section B - Complete if H&P > 30 days Chief Complaint: Carpal tunnel syndrome, right upper limb Allergies: Allergies Allergy/AdvReac Type Severity Reaction Status Date / Time Penicillins AdvReac Intermediate Rash Verified 03/26/24 11:07 Plan Diagnosis/Plan: Unchanged I have reviewed the history and physical and performed a pertinent physical examination on my patient. No changes have occurred unless specified. Time Spent With Patient Time: Total time managing care of this patient today ____ minutes.
--- NOTE | 2024-03-26 11:30 | W.PM.OPN ---
Operative Note Operative Note Date of Service: 03/26/24 Narrative: Preop diagnosis: 1. Right Carpal tunnel syndrome Postop diagnosis: same Procedure: 1. Right Carpal tunnel release Surgeon: Tika Nicole MD Director Of Valuation: Segundo BORGES Anesthesia: local block using 1% lidocaine with epinephrine Findings: Thickened transverse carpal ligament. EBL: Less than 5 mL Specimens: None Complications: None Disposition: Brought to recovery room in stable condition Plan: Follow-up for 10-14 days for wound check and suture removal Indications: The patient is a 68 years old, with right carpal tunnel syndrome that has been unresponsive to nonoperative management. The risks and benefits of operative treatment including but not limited to risk of damage to blood vessels, nerves, tendons, infection, persistent pain, persistent symptoms, or possible need for additional surgery were discussed with the patient and the patient wishes to proceed with surgery. Procedure: Once consent was obtained a local block was performed using a combination of 1% lidocaine with epinephrine. The patient was then brought back to the operating suite and placed on the operative table in supine position. The right upper extremity was prepped and draped in a standard surgical fashion. Once assured that we had a good block, a 2.0 cm longitudinal incision was made centered over the carpal tunnel. The incision was made through the skin to the subcutaneous tissues using a #15 blade. Dissection was made down to the level of the transverse carpal ligament with care being taken to protect the palmar cutaneous nerve. Once the transverse carpal ligament was clearly visualized, a longitudinal incision was made in the transverse carpal ligament 1st using a #15 blade, then using tenotomy scissors under direct visualization. Care was taken to look for and protect the motor branch of the median nerve when seen in this area. Once satisfied with our carpal tunnel release the wound was copiously irrigated with normal saline and hemostasis was obtained with a brief period of local pressure. The skin edges were reapproximated with some 5.0 nylon suture material and a sterile dressing was applied. The patient appears to have tolerated the procedure well and with no complications. All digits were well vascularized at the conclusion of the case.
[2024-03-26 12:50] VITALS: BP 137/87; PULSE 63; O2SAT 95
== END 2024-03-26 12:57 | disposition home or self-care (01) ==
PROVIDERS: PCP Internal Medicine; Visit Provider Orthopaedic Surgery
PROC: (CPT 64721; principal; 2024-03-26 13:00)
DX: G56.01 Carpal tunnel syndrome, right upper limb (principal); M25.531 Pain in right wrist; R20.0 Anesthesia of skin; R20.2 Paresthesia of skin; M54.2 Cervicalgia; R76.0 Raised antibody titer; I50.9 Heart failure, unspecified; Z95.5 Presence of coronary angioplasty implant and graft; C61 Malignant neoplasm of prostate; M35.3 Polymyalgia rheumatica; Z96.611 Presence of right artificial shoulder joint; Z88.0 Allergy status to penicillin
CPT/HCPCS: 64721; J0171; J2003

== ENCOUNTER → 2024-03-26 11:01 | Outpatient (BNV) | payer MEDICARE, OTHER, SELFPAY | PROVIDERS: PCP Internal Medicine; Visit Provider Orthopaedic Surgery | DX: G56.01 Carpal tunnel syndrome, right upper limb (principal) | CPT/HCPCS: 64721 ==

== ENCOUNTER 2024-04-09 10:26 | Outpatient (AMB) | payer MEDICARE, OTHER, SELFPAY ==
--- NOTE | 2024-04-09 10:45 | A.OFFVIS_ITS ---
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 Suture Removed & Steries Applied. Patient reports he is still having numbness and tingling but this is expected he says. Denies any discharge from incision. Allergies Penicillins Adverse Reaction (Intermediate, Verified 04/09/24 10:51) Rash HPI HPI PO-Rt CTR 03/26/24: Details: Jame is a 69 year old right hand dominant male who presents today for his first post operative appointment s/p Right Carpal Tunnel Release 03/26/24. Suture Removed & Steries Applied. Patient reports he is still having numbness and tingling but this is expected he says. Dense numbness prior to surgery. Denies any discharge from incision. No other acute complaints or concerns at this time. [facility] Medical History Neck pain Polyarticular osteoarthritis DELMIS positive Transaminitis Prostate cancer CHF (congestive heart failure) Bilateral hand numbness Polymyalgia rheumatica Osteoarthritis of lumbar spine Cervical disc disease Bilateral primary osteoarthritis of knee Bilateral carpal tunnel syndrome Cervical spondylosis Surgical History (Updated 04/13/24 @ 11:05 by KATERINA Quan) H/O heart artery stent History of EMG H/O shoulder replacement Family History Family/Other Autoimmune disease Father Heart disease Pancreatic cancer Mother No problems noted. 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 Neuro: Diminished sensation in the median nerve distribution of the of the right hand at this time Vascular: Cap refill brisk Pain: No tenderness to palpation about incision site on right wrist ROM: Patient was able to make a closed fist and extend all digits of the right hand fully Skin: Well approximated and well healing incision site noted on the volar right wrist General: No ecchymosis, erythema, or evidence of infection. Psych: Appears grossly normal Affect normal Attitude cooperative Assessment & Plan Assessment & Plan (1) Status post carpal tunnel release: Code(s): Z98.890 - Other specified postprocedural states Category: Surgical Plan 1. Status post right carpal tunnel release DOS 03/1924 Patient appears to be recovering well postoperatively Patient was educated about the typical recovery course At this time, patient is informed that he will require no acute follow-up with us for his right carpal tunnel release, as he has recovered very well Sutures removed, Steri-Strips applied Patient was amenable to this plan Follow-up as needed with any acute concerns Coding Level of Care Code Global (25216) Diagnoses Status post carpal tunnel release Z98.890
== END 2024-04-09 11:02 | disposition home or self-care (01) ==
PROVIDERS: PCP Internal Medicine
DX: Z98.890 Other specified postprocedural states (principal)
CPT/HCPCS: 99024

== ENCOUNTER → 2024-04-09 10:26 | Outpatient (BNVA) | payer MEDICARE, OTHER, SELFPAY | PROVIDERS: PCP Internal Medicine | DX: Z09 Encounter for follow-up examination after completed treatment for conditions other than malignant neoplasm (principal); Z86.69 Personal history of other diseases of the nervous system and sense organs; Z98.890 Other specified postprocedural states | CPT/HCPCS: 99212 ==